=== PATIENT | male | born 1940 | race Two or more races ===

== ENCOUNTER 2021-07-11 08:20 | Inpatient (IN) | payer MEDICAID, OTHER ==
[~2021-07-11] VITALS: Ht 162.6 cm; Wt 74.1 kg
[2021-07-11] MEDS ORDERED: barium sulfate 450ml oral suspension ONE (09:00)
[2021-07-11] MEDS ORDERED: LIDOcaine 1% W/epiNEPHrine 1:200,000 10ml vial ONE (09:00)
[2021-07-11] MEDS ORDERED: CEPH-585 PO (11:39)
[2021-07-11 12:33] LABS: BASOPHILS % (AUTO) 0.2 % (0-1); EOSINOPHILS % (AUTO) 0 % (0-6); HEMATOCRIT 42.5 % (42.0-52.0); HEMOGLOBIN 14.2 g/dl (14.0-17.9); LYMPHOCYTES # (AUTO) 1.7 X10'3 (1.1-4.8); LYMPHOCYTES % (AUTO) 11.4 % (21-51); MEAN CORPUSCULAR HEMOGLOBIN 30.7 PG (27.0-31.0); MEAN CORPUSCULAR HGB CONC 33.3 g/dL (33.0-36.5); MEAN CORPUSCULAR VOLUME 92.2 FL (78-98); MEAN PLATELET VOLUME 7.9 FL (7.4-10.4); MONOCYTES # (AUTO) 1.5 X10'3 (0-0.9); MONOCYTES % (AUTO) 10.1 % (2-12); NEUTROPHILS # (AUTO) 11.8 X10'3 (1.8-7.7); NEUTROPHILS % (AUTO) 78.3 % (42-75); PLATELET COUNT 209 X10'3 (140-440); RED BLOOD COUNT 4.61 X10'6 (4.70-6.10); RED CELL DISTRIBUTION WIDTH 13.7 % (11.5-14.5); WHITE BLOOD COUNT 15.1 X10'3 (4.5-11.0)
[2021-07-11 12:45] LABS: ALANINE AMINOTRANSFERASE 26 U/L (12-78); ALBUMIN 3.5 G/DL (3.4-5.0); ALBUMIN/GLOBULIN RATIO 0.8 (1.1-1.5); ALKALINE PHOSPHATASE 111 IU/L (46-116); ANION GAP 10 (8-16); ASPARTATE AMINO TRANSFERASE 27 U/L (10-37); BILIRUBIN,TOTAL 0.9 MG/DL (0.1-1.0); BLOOD UREA NITROGEN 25 MG/DL (7-18); BUN/CREATININE RATIO 12.5 (5.4-32.0); CALCIUM 8.4 MG/DL (8.5-10.1); CHLORIDE 107 MMOL/L (99-107); GLUCOSE 146 MG/DL (70-104); POTASSIUM 4.2 MMOL/L (3.5-5.1); SODIUM 145 MMOL/L (135-145); TOTAL PROTEIN 8.1 G/DL (6.4-8.2); eGFR 32 ML/MIN
[2021-07-11] MEDS ORDERED: cephalexin 250mg capsule PO ONE (13:50)
[2021-07-11] MEDS ORDERED: acetaminophen 325mg tablet PO ONE (13:55)
[2021-07-11] MEDS ORDERED: normal saline 1000ML IV soln IV ONE (14:15)
[2021-07-11] MEDS ORDERED: potassium Cl 40MEQ/1/2NS 520ml 520 ML IV PRN ×2 (14:50)
[2021-07-11] MEDS ORDERED: magnesium Cl slow-release 64mg tablet PO PRN (14:50)
[2021-07-11] MEDS ORDERED: ondansetron/PF 4mg/2ml inj IV PRN (14:50)
[2021-07-11] MEDS ORDERED: magnesium 2GM in 50ml NS 50 ML IV PRN (14:50)
[2021-07-11] MEDS ORDERED: magnesium 4gm in 100ml NS 100 ML IV PRN (14:50)
[2021-07-11] MEDS ORDERED: potassium Cl 20 mEq SR tablet PO PRN ×2 (14:50)
[2021-07-11] MEDS ORDERED: OLAN10TA73 PO ×2 (15:20)
[2021-07-11] MEDS ORDERED: MEMA10TA56 PO (15:20)
[2021-07-11] MEDS: normal saline 1000ml 1,000 ML IV SCH ×2 (18:14→22:06)
[2021-07-11 18:29] LABS: CLARITY,URINE SLIGHTLY CLOUDY (Clear); COLOR,URINE YELLOW (Yellow); GLUCOSE, URINE NEGATIVE (Neg); KETONES,URINE NEGATIVE (Neg); LEUKOCYTE ESTERASE ,URINE NEGATIVE (Neg); NITRITES, URINE NEGATIVE (Neg); OCCULT BLOOD,URINE NEGATIVE (Neg); PROTEIN,URINE 30 mg/dl (Neg); UROBILINOGEN,URINE 0.2 E.U/dL (0.2-1.0)
[2021-07-11 18:30] LABS: UA COLLECTION TYPE NON-SPECIFIED
[2021-07-11 19:07] LABS: AMORPHOUS URATES 1+; BACTERIA,URINE NONE SEEN /HPF (Neg); MUCUS STRANDS FEW /LPF (Neg); RBC,URINE NONE SEEN /HPF (0-2); SQUAMOUS EPITHELIAL CELL,UR FEW /LPF (FEW); WBC,URINE NONE SEEN /HPF (0-4)
[2021-07-11 19:45] VITALS: BP 145/76
[2021-07-11] MEDS: K and/or MAG REPLACEMENT MC SCH (20:00)
[2021-07-11] MEDS ORDERED: CefTRIAXone/D5W-Rocephin 1gm 50 ML IV SCH (21:05)
[2021-07-11 22:00] VITALS: BP 163/81
[2021-07-11] MEDS: morphine 2 MG/ML inj. syringe IV PRN (22:06)
[2021-07-12 05:52] LABS: BASOPHILS % (AUTO) 0.3 % (0-1); EOSINOPHILS % (AUTO) 0.1 % (0-6); HEMATOCRIT 39.5 % (42.0-52.0); LYMPHOCYTES % (AUTO) 14.4 % (21-51); MEAN CORPUSCULAR HEMOGLOBIN 30.7 PG (27.0-31.0); MEAN CORPUSCULAR VOLUME 92.9 FL (78-98); MEAN PLATELET VOLUME 8.1 FL (7.4-10.4); MONOCYTES # (AUTO) 1.6 X10'3 (0-0.9); MONOCYTES % (AUTO) 11.2 % (2-12); NEUTROPHILS # (AUTO) 10.4 X10'3 (1.8-7.7); PLATELET COUNT 171 X10'3 (140-440); RED BLOOD COUNT 4.25 X10'6 (4.70-6.10); RED CELL DISTRIBUTION WIDTH 13.6 % (11.5-14.5)
[2021-07-12 06:03] LABS: ALBUMIN 2.8 G/DL (3.4-5.0); ANION GAP 11 (8-16); BLOOD UREA NITROGEN 21 MG/DL (7-18); BUN/CREATININE RATIO 12.2 (5.4-32.0); CALCIUM 7.6 MG/DL (8.5-10.1); CHLORIDE 110 MMOL/L (99-107); CREATININE 1.72 MG/DL (0.60-1.10); GLUCOSE 117 MG/DL (70-104); MAGNESIUM 1.8 MG/DL (1.5-2.4); SODIUM 143 MMOL/L (135-145); TOTAL CARBON DIOXIDE 22.4 MMOL/L (24-32); eGFR 38 ML/MIN
[2021-07-12] MEDS: acetaminophen 325mg tablet PO PRN ×2 (06:53→14:59)
[2021-07-12 08:00] VITALS: BP 148/72
[2021-07-12] MEDS ORDERED: CefTRIAXone/D5W-Rocephin 1gm 50 ML IV SCH (08:00)
[2021-07-12] MEDS: K and/or MAG REPLACEMENT MC SCH ×2 (08:00→20:00)
[2021-07-12 10:57] VITALS: BP 138/96
[2021-07-12] MEDS: normal saline 1000ml 1,000 ML IV SCH ×2 (10:59→19:29)
--- NOTE | 2021-07-12 12:18 | NUR ---
Codey Consult: Codey Bryant; skin intact per EMR. Addendum: 07/12/21 at [address] Amended: Links added.
[2021-07-12 14:30] VITALS: BP 142/58
--- NOTE | 2021-07-12 16:23 | NUR ---
PAGER ID: [phone] MESSAGE: Calista [id number] - re [id number] Ko had a temp of 103, came down to 101.1 post tylenol, any new orders?
[2021-07-12 18:30] VITALS: BP 108/62
[2021-07-12] MEDS: piperacillin/tazo 3.375gm/50ml 50 ML IV SCH (19:36)
[2021-07-12] MEDS: morphine 2 MG/ML inj. syringe IV PRN (19:38)
--- NOTE | 2021-07-12 19:57 | NUR ---
daughter at bedside helping to translate
[2021-07-12 22:00] VITALS: BP 99/79
[2021-07-13] VITALS (9 sets, daily range): BP systolic 117–147; BP diastolic 58–76
[2021-07-13] MEDS: morphine 2 MG/ML inj. syringe IV PRN ×4 (01:48→23:57)
[2021-07-13] MEDS: piperacillin/tazo 3.375gm/50ml 50 ML IV SCH ×2 (04:24→17:43)
[2021-07-13] MEDS: normal saline 1000ml 1,000 ML IV SCH (04:35)
--- NOTE | 2021-07-13 06:25 | NUR ---
reported to days. noted pt may need mri of the brain for right side neglect
--- NOTE | 2021-07-13 06:43 | NUR ---
Patient in room [facility] 4022. I have received report from CARLI Dumont and had the opportunity to ask questions and assume patient care.
[2021-07-13 06:56] LABS: BASOPHILS % (AUTO) 0.1 % (0-1); EOSINOPHILS % (AUTO) 0.1 % (0-6); HEMATOCRIT 37.4 % (42.0-52.0); HEMOGLOBIN 12.4 g/dl (14.0-17.9); LYMPHOCYTES # (AUTO) 1.7 X10'3 (1.1-4.8); LYMPHOCYTES % (AUTO) 11.6 % (21-51); MEAN CORPUSCULAR HEMOGLOBIN 30.2 PG (27.0-31.0); MEAN CORPUSCULAR VOLUME 91.4 FL (78-98); MEAN PLATELET VOLUME 8.9 FL (7.4-10.4); MONOCYTES # (AUTO) 1.5 X10'3 (0-0.9); NEUTROPHILS # (AUTO) 11.6 X10'3 (1.8-7.7); NEUTROPHILS % (AUTO) 78.2 % (42-75); PLATELET COUNT 174 X10'3 (140-440); RED BLOOD COUNT 4.09 X10'6 (4.70-6.10); RED CELL DISTRIBUTION WIDTH 14.1 % (11.5-14.5); WHITE BLOOD COUNT 14.8 X10'3 (4.5-11.0)
[2021-07-13 07:22] LABS: ALBUMIN 2.4 G/DL (3.4-5.0); ANION GAP 10 (8-16); BLOOD UREA NITROGEN 30 MG/DL (7-18); BUN/CREATININE RATIO 15.9 (5.4-32.0); CALCIUM 7.7 MG/DL (8.5-10.1); CHLORIDE 113 MMOL/L (99-107); CREATININE 1.89 MG/DL (0.60-1.10); GLUCOSE 106 MG/DL (70-104); MAGNESIUM 1.9 MG/DL (1.5-2.4); POTASSIUM 3.9 MMOL/L (3.5-5.1); SODIUM 146 MMOL/L (135-145); TOTAL CARBON DIOXIDE 23.5 MMOL/L (24-32); eGFR 34 ML/MIN
[2021-07-13] MEDS: K and/or MAG REPLACEMENT MC SCH ×2 (07:32→20:00)
[2021-07-13] MEDS: acetaminophen 325mg tablet PO PRN (09:56)
--- NOTE | 2021-07-13 13:48 | NUR ---
Page Sent PAGER ID: [phone] MESSAGE: [id number] Regarding [id number] Ko, J-Pt in MRI very anxious per staff. Can we get an order for antianxiety med?
[2021-07-13] MEDS ORDERED: LORazepam 2 mg/ml vial IV ONE (13:55)
--- NOTE | 2021-07-13 15:50 | NUR ---
Pt arrived back from MRI, VSS. Resting in bed. Will continue to monitor.
[2021-07-13] MEDS: VANCOMYCIN 750MG IV in NS 250 ML IV SCH (16:09)
--- NOTE | 2021-07-13 17:08 | NUR ---
Page Sent PAGER ID: [phone] MESSAGE: [id number] Jack Ko-Head MRI in for review.
--- NOTE | 2021-07-13 18:40 | NUR ---
Problems reprioritized. Patient report given, Keli, RN questions answered & plan of care reviewed with .
--- NOTE | 2021-07-13 19:30 | NUR ---
Pt. awake very appears restless able to communicate with his daughter minimally at this time. Pt's daughter at bedside able to communicate on behalf of pt. but has limited Danish. Repositioned pt. for comfort. Medicated pain for prn as ordered. Call light within reach ans bed in low position. Addendum: 07/14/21 at 0036 by Keli Dan RN Amended: Links added.
[2021-07-14] MEDS: acetaminophen 325mg tablet PO PRN ×2 (00:34→16:28)
[2021-07-14] MEDS: normal saline 1000ml 1,000 ML IV SCH ×4 (00:47→22:50)
[2021-07-14] MEDS: piperacillin/tazo 3.375gm/50ml 50 ML IV SCH ×2 (00:47→08:31)
[2021-07-14 01:00] VITALS: BP 148/76
--- NOTE | 2021-07-14 02:33 | NUR ---
pt moving all extremities. still not looking to the right or responding to visual threat. more verbal tonight with daughter. "picking things out of the air" noted pt may have received antianxiety for MRI tests today. daughter at bedside, freq voiding and incontinence.
[2021-07-14 06:00] VITALS: BP 133/67
[2021-07-14 06:08] LABS: BASOPHILS % (AUTO) 0.2 % (0-1); EOSINOPHILS # (AUTO) 0.1 X10'3 (0-0.9); EOSINOPHILS % (AUTO) 0.6 % (0-6); HEMATOCRIT 37.9 % (42.0-52.0); HEMOGLOBIN 12.5 g/dl (14.0-17.9); LYMPHOCYTES # (AUTO) 1.3 X10'3 (1.1-4.8); LYMPHOCYTES % (AUTO) 10.6 % (21-51); MEAN CORPUSCULAR HEMOGLOBIN 30.7 PG (27.0-31.0); MEAN PLATELET VOLUME 8.6 FL (7.4-10.4); MONOCYTES % (AUTO) 8.3 % (2-12); NEUTROPHILS # (AUTO) 9.9 X10'3 (1.8-7.7); NEUTROPHILS % (AUTO) 80.3 % (42-75); PLATELET COUNT 188 X10'3 (140-440); RED BLOOD COUNT 4.07 X10'6 (4.70-6.10); RED CELL DISTRIBUTION WIDTH 13.4 % (11.5-14.5); WHITE BLOOD COUNT 12.3 X10'3 (4.5-11.0)
[2021-07-14 06:27] LABS: ALBUMIN 2.4 G/DL (3.4-5.0); ANION GAP 11 (8-16); BLOOD UREA NITROGEN 35 MG/DL (7-18); BUN/CREATININE RATIO 19.6 (5.4-32.0); CALCIUM 8.3 MG/DL (8.5-10.1); CHLORIDE 115 MMOL/L (99-107); CREATININE 1.79 MG/DL (0.60-1.10); GLUCOSE 102 MG/DL (70-104); MAGNESIUM 2.2 MG/DL (1.5-2.4); POTASSIUM 3.8 MMOL/L (3.5-5.1); SODIUM 149 MMOL/L (135-145); TOTAL CARBON DIOXIDE 23.4 MMOL/L (24-32); eGFR 37 ML/MIN
--- NOTE | 2021-07-14 06:30 | NUR ---
reported to days. noted pt resting - anticipate results from MRI today. attempt mobilization.
[2021-07-14] MEDS: morphine 2 MG/ML inj. syringe IV PRN (06:37)
[2021-07-14] MEDS: K and/or MAG REPLACEMENT MC SCH ×2 (08:00→20:00)
--- NOTE | 2021-07-14 09:57 | NUR ---
PAGER ID: [phone] MESSAGE: Calista [phone] - re [id number] Ko. Family is wondering if we can take him off NPO and let him eat something?
[2021-07-14 10:00] VITALS: BP 130/74
[2021-07-14 10:29] LABS: BF RBC COUNT 900 /CU MM; BFAPPEAR CLOUDY; BFCOLOR YELLOW; BFVOLUME 33 ML; LYMPHOCYTES,BODY FLUID 1 %; NEUTROPHILS,BODY FLUID 99 %
[2021-07-14 10:30] LABS: BODY FLUID CRYSTALS QT FEW (NONE SEEN)
[2021-07-14 10:31] LABS: CRYSTAL ID, BODY FLD URIC ACID (NONE SEEN)
[2021-07-14 12:36] LABS: BF WBC COUNT 11200 /CU MM (0-1000)
[2021-07-14] MEDS: VANCOMYCIN 750MG IV in NS 250 ML IV SCH (16:26)
[2021-07-14 18:00] VITALS: BP 105/55
[2021-07-14] MEDS: lactobacillus rhamnosus 10,000 MMU CELLS/CAPSULE PO SCH (21:32)
[2021-07-14 22:00] VITALS: BP 142/71
[2021-07-15] MEDS: normal saline 1000ml 1,000 ML IV SCH ×2 (03:58→18:50)
[2021-07-15 06:09] LABS: BASOPHILS % (AUTO) 0.2 % (0-1); EOSINOPHILS # (AUTO) 0.1 X10'3 (0-0.9); EOSINOPHILS % (AUTO) 0.6 % (0-6); HEMATOCRIT 34.9 % (42.0-52.0); HEMOGLOBIN 11.6 g/dl (14.0-17.9); LYMPHOCYTES # (AUTO) 1.2 X10'3 (1.1-4.8); LYMPHOCYTES % (AUTO) 9.8 % (21-51); MEAN CORPUSCULAR HEMOGLOBIN 30.9 PG (27.0-31.0); MEAN CORPUSCULAR HGB CONC 33.3 g/dL (33.0-36.5); MEAN CORPUSCULAR VOLUME 92.7 FL (78-98); MEAN PLATELET VOLUME 8.6 FL (7.4-10.4); MONOCYTES # (AUTO) 0.8 X10'3 (0-0.9); NEUTROPHILS # (AUTO) 9.8 X10'3 (1.8-7.7); NEUTROPHILS % (AUTO) 82.4 % (42-75); PLATELET COUNT 195 X10'3 (140-440); RED BLOOD COUNT 3.76 X10'6 (4.70-6.10); RED CELL DISTRIBUTION WIDTH 13.8 % (11.5-14.5)
[2021-07-15 06:10] VITALS: BP 151/63
[2021-07-15 06:28] LABS: ALBUMIN 2.1 G/DL (3.4-5.0); ANION GAP 12 (8-16); BLOOD UREA NITROGEN 35 MG/DL (7-18); BUN/CREATININE RATIO 21.1 (5.4-32.0); CHLORIDE 114 MMOL/L (99-107); CREATININE 1.66 MG/DL (0.60-1.10); GLUCOSE 111 MG/DL (70-104); MAGNESIUM 2.2 MG/DL (1.5-2.4); POTASSIUM 3.6 MMOL/L (3.5-5.1); SODIUM 149 MMOL/L (135-145); TOTAL CARBON DIOXIDE 23.2 MMOL/L (24-32); eGFR 40 ML/MIN
--- NOTE | 2021-07-15 06:47 | NUR ---
I received patient report from Helene RN
[2021-07-15] MEDS: K and/or MAG REPLACEMENT MC SCH ×2 (08:00→18:57)
[2021-07-15 10:00] VITALS: BP 143/71
[2021-07-15] MEDS: lactobacillus rhamnosus 10,000 MMU CELLS/CAPSULE PO SCH ×2 (10:46→18:56)
--- NOTE | 2021-07-15 12:00 | NUR ---
Problems reprioritized. Patient report given, questions answered & plan of care reviewed with Jia BOYCE.
--- NOTE | 2021-07-15 13:08 | NUR ---
RECEIVED REPORT FROM JIMMY BOYCE AND ASSUMED PATIENT CARE
[2021-07-15] MEDS ORDERED: VANCOMYCIN LEVEL IV ONE (15:30)
[2021-07-15] MEDS: piperacillin/tazo 3.375gm/50ml 50 ML IV SCH (15:44)
[2021-07-15] MEDS: acetaminophen 325mg tablet PO PRN (15:44)
[2021-07-15 18:00] VITALS: BP 141/70
[2021-07-15] MEDS: VANCOmycin 1250MG/NS 250ml Bag 250 ML IV SCH (18:56)
[2021-07-16] MEDS: piperacillin/tazo 3.375gm/50ml 50 ML IV SCH ×2 (00:42→08:59)
[2021-07-16] MEDS: normal saline 1000ml 1,000 ML IV SCH ×2 (04:50→16:53)
[2021-07-16 06:00] VITALS: BP 155/71
[2021-07-16 06:18] LABS: ANION GAP 8 (8-16); BLOOD UREA NITROGEN 30 MG/DL (7-18); BUN/CREATININE RATIO 19.5 (5.4-32.0); CALCIUM 8.1 MG/DL (8.5-10.1); CHLORIDE 114 MMOL/L (99-107); CREATININE 1.54 MG/DL (0.60-1.10); GLUCOSE 111 MG/DL (70-104); MAGNESIUM 2.3 MG/DL (1.5-2.4); POTASSIUM 3.3 MMOL/L (3.5-5.1); SODIUM 144 MMOL/L (135-145); TOTAL CARBON DIOXIDE 22.5 MMOL/L (24-32); eGFR 43 ML/MIN
[2021-07-16 06:22] LABS: BASOPHILS % (AUTO) 0.3 % (0-1); EOSINOPHILS # (AUTO) 0.1 X10'3 (0-0.9); HEMATOCRIT 37.4 % (42.0-52.0); HEMOGLOBIN 12.4 g/dl (14.0-17.9); LYMPHOCYTES # (AUTO) 1.4 X10'3 (1.1-4.8); LYMPHOCYTES % (AUTO) 10.4 % (21-51); MEAN CORPUSCULAR HEMOGLOBIN 30.4 PG (27.0-31.0); MEAN CORPUSCULAR HGB CONC 33.3 g/dL (33.0-36.5); MEAN CORPUSCULAR VOLUME 91.4 FL (78-98); MEAN PLATELET VOLUME 8.5 FL (7.4-10.4); MONOCYTES % (AUTO) 7.1 % (2-12); NEUTROPHILS # (AUTO) 11.2 X10'3 (1.8-7.7); NEUTROPHILS % (AUTO) 81.2 % (42-75); PLATELET COUNT 217 X10'3 (140-440); RED BLOOD COUNT 4.09 X10'6 (4.70-6.10); RED CELL DISTRIBUTION WIDTH 13.6 % (11.5-14.5); WHITE BLOOD COUNT 13.8 X10'3 (4.5-11.0)
--- NOTE | 2021-07-16 06:50 | NUR ---
Patient in room [facility]TH[facility] 4022B. I have received report from CARLI LANDERS and had the opportunity to ask questions and assume patient care.
[2021-07-16] MEDS: K and/or MAG REPLACEMENT MC SCH ×2 (08:00→20:00)
[2021-07-16] MEDS: lactobacillus rhamnosus 10,000 MMU CELLS/CAPSULE PO SCH ×2 (08:59→21:21)
[2021-07-16 10:00] VITALS: BP 125/48
[2021-07-16] MEDS ORDERED: potassium Cl 40MEQ/1/2NS 520ml 520 ML IV PRN (13:50)
[2021-07-16] MEDS ORDERED: potassium Cl 20 mEq SR tablet PO PRN (13:50)
[2021-07-16] MEDS ORDERED: magnesium Cl slow-release 64mg tablet PO PRN (13:50)
[2021-07-16] MEDS ORDERED: magnesium 4gm in 100ml NS 100 ML IV PRN (13:50)
[2021-07-16] MEDS: potassium Cl 20 mEq SR tablet PO PRN ×2 (16:47→21:19)
[2021-07-16] MEDS: magnesium hydroxide 30ml (MOM) UD suspension PO PRN (16:52)
--- NOTE | 2021-07-16 16:54 | NUR ---
Initial: Pt admit DX generalized weakness, sepsis of unknown source, RANDELL, anxiety, mastoiditis, and metabolic encephalopathy w/ hx Alzheimer's per EMR. Pt PO ~25% avg initial MM5/thin diet not meeting needs. LBM 07/11 5 days constipation w/ no bowel care ordered this admit. Pt would benefit from routine bowel care this admit. RD recommends Ensure Enlive TIDWM for additional protein/kcals this admit; MD notified. IF concerns for swallow safety would benefit from MATH AND SCIENCES DEPARTMENT CHAIR BSS as well though family reports eating and drinking well PET FEEDER per EMR. Will continue to monitor for additional protein/kcal needs this admit. Rec: 1. continue MM5/thin diet; consider MATH AND SCIENCES DEPARTMENT CHAIR BSS if swallow concerns; encourage PO 2. Ensure Enlive TIDWM for additional kcals/protein; pending MD verification in EMR 3. routine bowel care; 5 days constipation without bowel care 4. scaled wt this admit; subsequent weekly wts Addendum: 07/16/21 at [address] Amended: Links added.
[2021-07-16] MEDS: VANCOmycin 1250MG/NS 250ml Bag 250 ML IV SCH (17:14)
[2021-07-16 18:00] VITALS: BP 154/91
[2021-07-16] MEDS ORDERED: lactose-reduced food (Ensure Enlive) - 237ml bottle PO SCH (18:00)
[2021-07-16] MEDS: acetaminophen 325mg tablet PO PRN (21:20)
[2021-07-16] MEDS: colchicine 0.6mg tablet PO SCH (21:22)
[2021-07-16] MEDS: ALPRAZolam 0.25mg tablet PO PRN (21:28)
[2021-07-16 22:00] VITALS: BP 149/73
[2021-07-17] MEDS: normal saline 1000ml 1,000 ML IV SCH (00:50)
[2021-07-17] MEDS: morphine 2 MG/ML inj. syringe IV PRN ×2 (04:37→19:09)
[2021-07-17 06:10] VITALS: BP 110/67
[2021-07-17 06:11] LABS: MAGNESIUM 2.3 MG/DL (1.5-2.4); POTASSIUM 4.3 MMOL/L (3.5-5.1)
[2021-07-17] MEDS: K and/or MAG REPLACEMENT MC SCH ×2 (08:00→19:22)
[2021-07-17] MEDS: predniSONE 20 mg tablet PO SCH (08:01)
[2021-07-17] MEDS: lactobacillus rhamnosus 10,000 MMU CELLS/CAPSULE PO SCH ×2 (08:01→19:14)
[2021-07-17] MEDS: magnesium hydroxide 30ml (MOM) UD suspension PO PRN (08:01)
[2021-07-17] MEDS: colchicine 0.6mg tablet PO SCH ×2 (08:01→19:14)
[2021-07-17] MEDS ORDERED: furosemide 20 MG/2 ML vial IV ONE (09:40)
[2021-07-17 10:00] VITALS: BP 149/93
[2021-07-17] MEDS ORDERED: bisacodyl 10mg suppository rectal RC PRN (12:00)
--- NOTE | 2021-07-17 12:57 | NUR ---
I paged Dr. Olivares regarding patients home [facility] that the family would like resumed. Also asked her about the barium swallow that is ordered, Spoke with Eliezer speech therapist. Patient is eating, he said if patient needs test it will be done in the am.
[2021-07-17] MEDS: VANCOmycin 1250MG/NS 250ml Bag 250 ML IV SCH (16:27)
[2021-07-17 18:00] VITALS: BP 138/65
[2021-07-17] MEDS: memantine 5mg tablet PO SCH (19:14)
[2021-07-17] MEDS: olanzapine 10mg tablet PO SCH (21:31)
[2021-07-17] MEDS: ALPRAZolam 0.25mg tablet PO PRN (21:31)
[2021-07-17 22:00] VITALS: BP 138/72
[2021-07-18 06:00] VITALS: BP 138/65
[2021-07-18 06:16] LABS: BASOPHILS % (AUTO) 0.3 % (0-1); EOSINOPHILS # (AUTO) 0.1 X10'3 (0-0.9); EOSINOPHILS % (AUTO) 0.5 % (0-6); HEMATOCRIT 34.2 % (42.0-52.0); HEMOGLOBIN 11.3 g/dl (14.0-17.9); LYMPHOCYTES # (AUTO) 1.1 X10'3 (1.1-4.8); LYMPHOCYTES % (AUTO) 6.8 % (21-51); MEAN CORPUSCULAR HEMOGLOBIN 30.4 PG (27.0-31.0); MEAN CORPUSCULAR HGB CONC 32.9 g/dL (33.0-36.5); MEAN CORPUSCULAR VOLUME 92.4 FL (78-98); MEAN PLATELET VOLUME 8.5 FL (7.4-10.4); MONOCYTES # (AUTO) 1.1 X10'3 (0-0.9); MONOCYTES % (AUTO) 6.8 % (2-12); NEUTROPHILS # (AUTO) 13.4 X10'3 (1.8-7.7); NEUTROPHILS % (AUTO) 85.6 % (42-75); PLATELET COUNT 304 X10'3 (140-440); RED CELL DISTRIBUTION WIDTH 13.6 % (11.5-14.5); WHITE BLOOD COUNT 15.6 X10'3 (4.5-11.0)
[2021-07-18 06:45] LABS: ALANINE AMINOTRANSFERASE 55 U/L (12-78); ALBUMIN 1.8 G/DL (3.4-5.0); ALBUMIN/GLOBULIN RATIO 0.4 (1.1-1.5); ALKALINE PHOSPHATASE 142 IU/L (46-116); ANION GAP 11 (8-16); ASPARTATE AMINO TRANSFERASE 61 U/L (10-37); BILIRUBIN,TOTAL 0.9 MG/DL (0.1-1.0); BLOOD UREA NITROGEN 35 MG/DL (7-18); BUN/CREATININE RATIO 22.6 (5.4-32.0); CALCIUM 8.1 MG/DL (8.5-10.1); CHLORIDE 111 MMOL/L (99-107); CREATININE 1.55 MG/DL (0.60-1.10); GLUCOSE 109 MG/DL (70-104); MAGNESIUM 2.1 MG/DL (1.5-2.4); POTASSIUM 3.7 MMOL/L (3.5-5.1); SODIUM 146 MMOL/L (135-145); TOTAL CARBON DIOXIDE 24.5 MMOL/L (24-32); TOTAL PROTEIN 6.1 G/DL (6.4-8.2); eGFR 43 ML/MIN
[2021-07-18] MEDS: morphine 2 MG/ML inj. syringe IV PRN (06:49)
--- NOTE | 2021-07-18 07:01 | NUR ---
Patient in room [facility]TH[facility] 4022. I have received report from hitesh brown and had the opportunity to ask questions and assume patient care.
[2021-07-18] MEDS: K and/or MAG REPLACEMENT MC SCH ×2 (07:12→20:00)
[2021-07-18] MEDS: lactobacillus rhamnosus 10,000 MMU CELLS/CAPSULE PO SCH ×2 (07:41→20:30)
[2021-07-18] MEDS: predniSONE 20 mg tablet PO SCH (07:41)
[2021-07-18] MEDS: colchicine 0.6mg tablet PO SCH ×2 (07:42→20:30)
[2021-07-18] MEDS: OLANZAPINE 5 MG TABLET PO SCH (07:42)
[2021-07-18] MEDS: memantine 5mg tablet PO SCH ×2 (08:00→20:31)
[2021-07-18] MEDS ORDERED: PRED20TA PO (08:22)
[2021-07-18] MEDS ORDERED: COL0.6T PO (08:22)
[2021-07-18] MEDS ORDERED: LEVO500T89 PO (08:22)
[2021-07-18 10:00] VITALS: BP 131/71
[2021-07-18] MEDS ORDERED: VANCOMYCIN LEVEL IV ONE (15:30)
[2021-07-18 18:00] VITALS: BP 147/72
[2021-07-18] MEDS: VANCOmycin 1250MG/NS 250ml Bag 250 ML IV SCH (18:10)
[2021-07-18] MEDS: olanzapine 10mg tablet PO SCH (20:30)
[2021-07-18 22:00] VITALS: BP 129/69
[2021-07-19 06:24] LABS: BASOPHILS % (AUTO) 0.2 % (0-1); EOSINOPHILS # (AUTO) 0.2 X10'3 (0-0.9); EOSINOPHILS % (AUTO) 1.3 % (0-6); HEMATOCRIT 36.5 % (42.0-52.0); HEMOGLOBIN 11.9 g/dl (14.0-17.9); LYMPHOCYTES # (AUTO) 1.6 X10'3 (1.1-4.8); LYMPHOCYTES % (AUTO) 11.3 % (21-51); MEAN CORPUSCULAR HEMOGLOBIN 30.1 PG (27.0-31.0); MEAN CORPUSCULAR HGB CONC 32.6 g/dL (33.0-36.5); MEAN CORPUSCULAR VOLUME 92.3 FL (78-98); MEAN PLATELET VOLUME 8.6 FL (7.4-10.4); MONOCYTES % (AUTO) 7.2 % (2-12); NEUTROPHILS # (AUTO) 11.4 X10'3 (1.8-7.7); PLATELET COUNT 364 X10'3 (140-440); RED BLOOD COUNT 3.95 X10'6 (4.70-6.10); RED CELL DISTRIBUTION WIDTH 13.6 % (11.5-14.5); WHITE BLOOD COUNT 14.2 X10'3 (4.5-11.0)
[2021-07-19 06:30] VITALS: BP 141/68
--- NOTE | 2021-07-19 06:48 | NUR ---
Patient in room [facility]TH[facility] 4022. I have received report from RENÉE BOYCE and had the opportunity to ask questions and assume patient care.
--- NOTE | 2021-07-19 06:52 | NUR ---
Problems reprioritized. Patient report given, questions answered & plan of care reviewed with CARLI BURLESON.
[2021-07-19 07:02] LABS: ALANINE AMINOTRANSFERASE 145 U/L (12-78); ALBUMIN/GLOBULIN RATIO 0.4 (1.1-1.5); ALKALINE PHOSPHATASE 170 IU/L (46-116); ANION GAP 11 (8-16); ASPARTATE AMINO TRANSFERASE 184 U/L (10-37); BILIRUBIN,TOTAL 0.8 MG/DL (0.1-1.0); BLOOD UREA NITROGEN 38 MG/DL (7-18); BUN/CREATININE RATIO 25.3 (5.4-32.0); CALCIUM 8.3 MG/DL (8.5-10.1); CHLORIDE 111 MMOL/L (99-107); GLUCOSE 91 MG/DL (70-104); POTASSIUM 3.3 MMOL/L (3.5-5.1); SODIUM 147 MMOL/L (135-145); TOTAL CARBON DIOXIDE 25.4 MMOL/L (24-32); TOTAL PROTEIN 6.6 G/DL (6.4-8.2); eGFR 45 ML/MIN
[2021-07-19] MEDS: memantine 5mg tablet PO SCH (08:52)
[2021-07-19] MEDS: predniSONE 20 mg tablet PO SCH (08:52)
[2021-07-19] MEDS: OLANZAPINE 5 MG TABLET PO SCH (08:52)
[2021-07-19] MEDS: colchicine 0.6mg tablet PO SCH (08:52)
[2021-07-19] MEDS: potassium Cl 20 mEq SR tablet PO PRN (08:53)
[2021-07-19] MEDS: lactobacillus rhamnosus 10,000 MMU CELLS/CAPSULE PO SCH (08:53)
[2021-07-19] MEDS: K and/or MAG REPLACEMENT MC SCH (08:57)
[2021-07-19 10:25] VITALS: BP 122/62
--- NOTE | 2021-07-19 14:46 | NUR ---
PT DISCHARGED IN STABLE CONDITION. LEFT FACILITY IN EMS TO DAUGHTERS HOME. IV DC CANULA INTACT. ALL BELONGINGS WITH DAUGHTER.
== END 2021-07-19 14:00 | disposition home or self-care (01) | DRG 720 ==
LOC: ER 08:21 → ED HOLD 14:53 → ORTHO 4S 19:39
PROVIDERS: ADMIT Internal Medicine; ATTEND Internal Medicine
PROC: 0S9D3ZZ Drainage of Left Knee Joint, Percutaneous Approach (ICD-10-PCS; principal; 2021-07-13)
DX: A41.9 Sepsis, unspecified organism (principal); G93.41 Metabolic encephalopathy; N17.9 Acute kidney failure, unspecified; F02.80 Dementia in other diseases classified elsewhere, unspecified severity, without behavioral disturbance, psychotic disturbance, mood disturbance, and anxiety; L03.115 Cellulitis of right lower limb; M25.552 Pain in left hip; M25.562 Pain in left knee; M25.561 Pain in right knee; F41.9 Anxiety disorder, unspecified; M10.9 Gout, unspecified; G30.1 Alzheimer's disease with late onset; W06.XXXA Fall from bed, initial encounter; R26.2 Difficulty in walking, not elsewhere classified; R53.83 Other fatigue; Y93.89 Activity, other specified; Y92.092 Bedroom in other non-institutional residence as the place of occurrence of the external cause; Y99.8 Other external cause status; Z79.899 Other long term (current) drug therapy
CPT/HCPCS: 36415; 70450; 70551; 71045; 73522; 73564; 73610; 73630; 73721; 74230; 80048; 80053; 80202; 81001; 83605; 83735; 84132; 84145; 84550; 85025; 85651; 87040; 87070; 87081; 89051; 89060; 92508; 93880; 93971; 97110; 97162; 97530; 97535; 99285; G0378; J0696; J1940; J2060; J2270; J2543; J3370; J7030; J7050; J7512